=== PATIENT | female | born 1990 | race Caucasian/White ===

== ENCOUNTER 2018-06-16 10:21 | Emergency (ER) | payer OTHER ==
[2018-06-16 10:27] VITALS: BMI 44.1
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
[2018-06-16] MEDS ORDERED: SODIUM CHLORIDE 0.9% 500 ML INFUS.BAG IV ONE (10:51)
[2018-06-16 10:56] LABS: BASO % 0.3 % (0-2.0); EOS % 0.2 % (0-4.5); HEMATOCRIT 41.2 % (32.4-45.2); HEMOGLOBIN 13.5 GM/dL (10.7-15.3); LYMPH % 24.3 % (8-40); MCH 27.4 pg (25.7-33.7); MCHC 32.8 g/dl (32.0-36.0); MEAN CELL VOLUME 83.4 fl (80-96); MEAN PLT VOLUME 8.5 fl (7.5-11.1); MONO % 3.1 % (3.8-10.2); NEUT % 72.1 % (42.8-82.8); PLATELET COUNT 336 K/MM3 (134-434); RBC 4.94 M/mm3 (3.60-5.2); RDW 13.6 % (11.6-15.6); WHITE BLOOD COUNT 11.8 K/mm3 (4.0-10.0)
[2018-06-16] MEDS ORDERED: ONDANSETRON 4 MG/2 ML VIAL IVPUSH ONE (11:18)
[2018-06-16 11:22] LABS: ALBUMIN 4.1 g/dl (3.4-5.0); ALK PHOS 127 U/L (45-117); ANION GAP 10 MMOL/L (8-16); BILIRUBIN,TOTAL 0.4 mg/dL (0.2-1); BLOOD UREA NITROGEN 7 mg/dL (7-18); CALCIUM 9.2 mg/dL (8.5-10.1); CHLORIDE 103 mmol/L (98-107); CO2 24 mmol/L (21-32); CREATININE 0.7 mg/dL (0.55-1.3); GLUCOSE,RANDOM 207 mg/dL (74-106); POTASSIUM 4.1 mmol/L (3.5-5.1); SGOT/AST 21 U/L (15-37); SGPT/ALT 32 U/L (13-61); SODIUM 137 mmol/L (136-145); TOT PROT 8.2 g/dl (6.4-8.2)
[2018-06-16 11:29] LABS: URINE APPEARANCE CLEAR; URINE BILIRUBIN NEGATIVE (<2.0 mg/dL); URINE COLOR YELLOW; URINE GLUCOSE (UA) 1+ (NEGATIVE); URINE KETONE 2+ (NEGATIVE); URINE LEUK ESTERASE NEGATIVE (NEGATIVE); URINE NITRITE NEGATIVE (NEGATIVE); URINE PROTEIN NEGATIVE (NEGATIVE); URINE UROBILINOGEN NEGATIVE mg/dL (0.2-1.0)
[2018-06-16 11:30] LABS: ACETONE SERUM NEGATIVE (NEGATIVE)
[2018-06-16] MEDS ORDERED: ACETAMINOPHEN 1000 MG/100 ML VIAL (NON FORMULARY) IVPB ONE (11:41)
[2018-06-16] MEDS ORDERED: ACETAMINOPHEN INJECTION 100 ML IVPB ONE (11:45)
[2018-06-16] MEDS ORDERED: ONDANSETRON 4 MG/2 ML VIAL ONE (11:45)
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
[2018-06-16 16:01] VITALS: BP 128/80; PULSE 76; TEMP 98.8
== END 2018-06-16 16:09 | disposition home or self-care (01) ==
LOC: JER 10:21
PROC: 3E033GC Introduction of Other Therapeutic Substance into Peripheral Vein, Percutaneous Approach (ICD-10-PCS; principal; 2018-06-16)
PROC: 3E033NZ Introduction of Analgesics, Hypnotics, Sedatives into Peripheral Vein, Percutaneous Approach (ICD-10-PCS; 2018-06-16)
DX: K52.9 Noninfective gastroenteritis and colitis, unspecified (principal); Z11.3 Encounter for screening for infections with a predominantly sexual mode of transmission; Z77.21 Contact with and (suspected) exposure to potentially hazardous body fluids; E11.9 Type 2 diabetes mellitus without complications; Z79.84 Long term (current) use of oral hypoglycemic drugs
CPT/HCPCS: 36415; 74177-TC; 80053; 81003; 82009; 84703; 85025; 87389; 87491; 87591; 99282-25; J0131

== ENCOUNTER 2018-09-16 20:02 | Emergency (ER) | payer OTHER ==
[2018-09-16 20:18] VITALS: BP 143/78; PULSE 77; TEMP 97.2; BMI 28.7
--- NOTE | 2018-09-16 20:39 | PDOC ---
History of Present Illness - General Chief Complaint: Chest Pain Stated Complaint: CHEST PAIN/HYPERTENSION Time Seen by Provider: 09/16/18 20:38 - History of Present Illness Initial Comments: 28yo F with PMH of HTN, DM, and migraines, presenting with chest pain. Patient states she felt chest discomfort earlier this morning which she describes as tension and rate 7-8/10. Later in the afternoon, she felt pain described as a "tugging" extend from the right side of the back of her neck and down her right arm. Patient also reports numbness and tingling in her right arm. Denies diaphoresis, but endorses nausea and one episode of vomiting, as well as two episodes of diarrhea. Took two excedrin around 4pm which did not provide any relief. No personal or family history of SC. No hemoptysis, no recent surgical history, no recent immobilization, no hormone use, no history of DVT or PE. 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 Patient took her blood pressure at home and noted it to be high 155/106. Glucose levels have been generally controlled today but noted sugar to be in the 280s. Reports that some family members have had a stomach bug. No fevers, chills, or abdominal pain. Past History - Past Medical History Allergies/Adverse Reactions: Allergies Allergy/AdvReac Type Severity Reaction Status Date / Time No Known Allergies Allergy Verified 06/16/18 10:27 Home Medications: Ambulatory Orders Cholecalciferol (Vitamin D3) [Vitamin D3] 50,000 unit PO WEEKLY 06/16/18 Ciclopirox Olamine [Ciclopirox] 30 ml TP ASDIR 06/16/18 Glyburide/Metformin HCl [Glyburide-Metformin 5-500 mg] 2 each PO BID 06/16/18 Insulin Glargine,Hum.rec.anlog [Lantus Solostar PEN (NF)] 24 units SQ HS Losartan Potassium [Cozaar -] 25 mg PO BID 06/16/18 Ondansetron [Zofran Odt -] 4 mg SL TID #15 od.tablet 09/16/18 COPD: No Diabetes: Yes (IDDM) - Surgical History Gastric Stapling: No Lung Surgery: No Neurologic Surgery: No - Suicide/Smoking/Psychosocial Hx Smoking History: Never smoked Have you smoked in the past 12 months: No Number of Cigarettes Smoked Daily: 0 Information on smoking cessation initiated: No Hx Alcohol Use: No Drug/Substance Use Hx: No Review of Systems - Review of Systems Comments:: Constitutional: no fever, no chills HEENT: no throat pain, no dysphagia Cardiovascular: +chest pain, no palpitations Respiratory: no cough, no shortness of breath Gastrointestinal: no abdominal pain, +nausea Genitourinary: no dysuria, no frequency Musculoskeletal: no myalgia, no arthralgia Skin: no rash, no itching Neurologic: +headache, no dizziness *Physical Exam - Vital Signs Last Vital Signs Temp Pulse Resp BP Pulse Ox 97.2 F L 77 20 143/78 100 09/16/18 20:16 09/16/18 20:16 09/16/18 20:16 09/16/18 20:16 09/16/18 20:16 - Physical Exam Comments: General: Awake, alert, and fully oriented, in no acute distress Head: No signs of trauma Eyes: EOMI, sclera anicteric ENT: Moist mucus membranes Neck: Normal ROM, supple Lungs: Lungs clear, Normal breath sounds Cardio: Regular rhythm, S1 and S2 present, tender to palpation overlying right side of chest as well as on right side of posterior neck Abdomen: Soft, nontender. No guarding, no rebound, no masses Extremities: Normal range of motion, Distal pulses present SKIN: Warm, Dry, normal turgor Neurologic: Cranial nerves II through XII grossly intact. Normal speech, sensation, strength, coordination, and gait. Moderate Sedation - Procedure Monitoring Vital Signs: Procedure Monitoring Vital Signs Temperature 97.2 F L 09/16/18 20:16 Pulse Rate 77 09/16/18 20:16 Respiratory Rate 20 09/16/18 20:16 Blood Pressure 143/78 09/16/18 20:16 O2 Sat by Pulse Oximetry (%) 100 09/16/18 20:16 ED Treatment Course - LABORATORY CBC & Chemistry Diagram: 09/16/18 21:45 09/16/18 21:45 Medical Decision Making - Medical Decision Making 28yo F with PMH of HTN, DM, and migraines, presenting with chest pain. DDX including but not limited to ACS, DKA, MSK, PNA, PE 1L NS, 1g Ofirmev, 4mg Zofran EKG: rate 79, QTc 435, NSR, no ST d/e 09/16/18 21:21 Mild leukocytosis, WBC=10.2 Patient reports improved pain, now 01/0609/16/18 22:16 CXR without acute pathology Electrolytes WNL, noted hyperglycemic at 208 consistent with diabetes Tpn negative, test negative Acetone negative Do not suspect cardiac pathology or DKA, most likely musculoskeletal origin with viral gastroenteritis Patient discharged 09/16/18 23:01 *DC/Admit/Observation/Transfer Diagnosis at time of Disposition: Chest pain - Discharge Dispostion Disposition: HOME Condition at time of disposition: Stable - Prescriptions Prescriptions: Ondansetron [Zofran Odt -] 4 mg SL TID #15 od.tablet - Referrals Referrals: Cirilo Calix MD [Primary Care Provider] - - Patient Instructions Printed Discharge Instructions: DI for Musculoskeletal Pain Additional Instructions: You came into the ED for chest pain. We performed blood work, an EKG, and Xray which were normal. Follow-up with your primary care doctor at your appointment tomorrow morning to discuss this ED visit and to further evaluate your chest pain. Your workup is not complete until you do so. Antinausea medicine has been sent to your pharmacy. Take as needed, not more than once every 8 hours. You can take [id number] tylenol or motrin for pain. Follow the instructions on the medication bottle. Call for emergency medicine services or go to the emergency room right away if you have symptoms of a heart attack, including: Chest pain, which may feel like a crushing weight A sense of fullness, squeezing, or pressure in the chest Rapid, irregular heartbeat Pain, tingling or numbness in the left shoulder and arm, the neck or jaw, or the right arm Sweating Nausea or vomiting Lightheadedness, weakness, or fainting Shortness of breath If you think you have an emergency, call for medical help right away. - Post Discharge Activity
[2018-09-16] MEDS ORDERED: ACETAMINOPHEN 1000 MG/100 ML VIAL (NON FORMULARY) IVPB ONE (21:20)
[2018-09-16] MEDS ORDERED: SODIUM CHLORIDE 1,000 ML IV STA (21:20)
[2018-09-16] MEDS ORDERED: ONDANSETRON 4 MG/2 ML VIAL IVPUSH ONE (21:20)
[2018-09-16] MEDS ORDERED: ACETAMINOPHEN INJECTION 100 ML IVPB ONE (21:50)
[2018-09-16] MEDS ORDERED: ONDANSETRON 4 MG/2 ML VIAL ONE (21:51)
[2018-09-16 22:04] LABS: BASO % 0.3 % (0-2.0); EOS % 0.6 % (0-4.5); HEMATOCRIT 38.5 % (32.4-45.2); HEMOGLOBIN 13.3 GM/dL (10.7-15.3); LYMPH % 30.2 % (8-40); MCH 28.8 pg (25.7-33.7); MCHC 34.6 g/dl (32.0-36.0); MEAN CELL VOLUME 83.2 fl (80-96); MONO % 3.8 % (3.8-10.2); NEUT % 65.1 % (42.8-82.8); PLATELET COUNT 289 K/MM3 (134-434); RBC 4.63 M/mm3 (3.60-5.2); RDW 14.6 % (11.6-15.6); WHITE BLOOD COUNT 10.6 K/mm3 (4.0-10.0)
--- NOTE | 2018-09-16 22:25 | PDOC ---
Attending Attestation - Resident Resident Name: Renetta Dotson - ED Attending Attestation I have performed the following: I have examined & evaluated the patient, The case was reviewed & discussed with the resident, I agree w/resident's findings & plan, Exceptions are as noted - HPI HPI: 09/16/18 22:24 28 yo female p/w rt shoulder pain since last week but came today because her rt arm felt uncomfortable and she developed anterior chest pain PMH NIDDM,HTN,obesity 09/16/18 22:28 09/16/18 22:32 - Physicial Exam PE: 09/16/18 22:33 obese 28 yo female presents with rt arm,shoulder pain and anterior chest pain head ncat neck supple, no jvd ++trapezius muscle tenderness lungs cta b/l cvs [id number] abd nontender no cva tenderness ext no edema,no clubbing, no cyanosis neuro axox3,ambulatory skin warm and dry 09/16/18 22:41 - Medical Decision Making 09/17/18 01:47 ekg was nsr with no sign of ischemia glu elevated but no dka neg preg normal troponin 09/17/18 01:48 imp atypical chest pain/musculoskeletal strain,diabetes plan pt to follow up with PCP
[2018-09-16 22:42] LABS: ALBUMIN 3.9 g/dl (3.4-5.0); ALK PHOS 140 U/L (45-117); ANION GAP 8 MMOL/L (8-16); BILIRUBIN,TOTAL 0.2 mg/dL (0.2-1); BLOOD UREA NITROGEN 12 mg/dL (7-18); CALCIUM 9.2 mg/dL (8.5-10.1); CHLORIDE 104 mmol/L (98-107); CO2 27 mmol/L (21-32); CREATININE 0.6 mg/dL (0.55-1.3); GLUCOSE,RANDOM 208 mg/dL (74-106); LIPASE 182 U/L (73-393); POTASSIUM 4.7 mmol/L (3.5-5.1); SGOT/AST 10 U/L (15-37); SGPT/ALT 24 U/L (13-61); SODIUM 139 mmol/L (136-145); TOT PROT 7.8 g/dl (6.4-8.2)
[2018-09-16 23:21] LABS: ACETONE SERUM NEGATIVE (NEGATIVE)
--- NOTE | 2018-09-17 11:53 | EKG ---
Test Reason : Blood Pressure : / mmHG Vent. Rate : 079 BPM Atrial Rate : 079 BPM P-R Int : 150 ms QRS Dur : 084 ms QT Int : 380 ms P-R-T Axes : 062 024 060 degrees QTc Int : 435 ms NORMAL SINUS RHYTHM POSSIBLE LEFT ATRIAL ENLARGEMENT BORDERLINE ECG NO PREVIOUS ECGS AVAILABLE Confirmed by MD CORBIN, SIVAN ([id number]) on 09/17/2018 11:53:29 AM Referred By: Confirmed By:SIVAN ALANIZ MD
== END 2018-09-16 23:40 | disposition home or self-care (01) ==
LOC: JER 20:02
PROC: 3E033NZ Introduction of Analgesics, Hypnotics, Sedatives into Peripheral Vein, Percutaneous Approach (ICD-10-PCS; principal; 2018-09-16)
PROC: 3E033GC Introduction of Other Therapeutic Substance into Peripheral Vein, Percutaneous Approach (ICD-10-PCS; 2018-09-16)
DX: R07.9 Chest pain, unspecified (principal); I10 Essential (primary) hypertension; E11.9 Type 2 diabetes mellitus without complications; Z79.4 Long term (current) use of insulin
CPT/HCPCS: 36415; 71046-TC-FY; 80053; 82009; 82550; 83690; 84484; 84703; 85025; 93005; 93010; 99284-25; J0131; J7030

== ENCOUNTER 2019-03-01 11:52 | Emergency (ER) | payer OTHER | END 2019-03-01 14:24 | disposition home or self-care (01) | LOC: JER 11:52 ==

== ENCOUNTER 2019-03-24 12:49 | Emergency (ER) | payer OTHER ==
[2019-03-24 13:10] VITALS: BP 118/61; PULSE 88; TEMP 98.4; BMI 41.6
[2019-03-24] MEDS ORDERED: KETOROLAC TROMETHAMINE 30 MG/1 ML VIAL IM ONE (13:11)
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
[2019-03-24] MEDS ORDERED: KETOROLAC TROMETHAMINE 60 MG/2 ML VIAL ONE (13:20)
[2019-03-24] MEDS ORDERED: KETOROLAC TROMETHAMINE 60 MG/2 ML VIAL IM ONE (13:20)
== END 2019-03-24 13:49 | disposition home or self-care (01) ==
LOC: JERFT 12:49
PROC: 3E0233Z Introduction of Anti-inflammatory into Muscle, Percutaneous Approach (ICD-10-PCS; principal; 2019-03-24)
DX: S13.4XXA Sprain of ligaments of cervical spine, initial encounter (principal); V49.49XA Driver injured in collision with other motor vehicles in traffic accident, initial encounter; Y92.414 Local residential or business street as the place of occurrence of the external cause; Y93.89 Activity, other specified; Y99.8 Other external cause status; I10 Essential (primary) hypertension; E11.9 Type 2 diabetes mellitus without complications; Z79.84 Long term (current) use of oral hypoglycemic drugs
CPT/HCPCS: 99281-25

== ENCOUNTER 2021-10-05 08:39 | Emergency (ER) | payer OTHER ==
[2021-10-05 09:08] VITALS: BP 156/91; PULSE 86; TEMP 98.1; BMI 47.9
[2021-10-05] MEDS ORDERED: ASPIRIN 81 MG CHEWABLE TABLETS PO ONE (09:48)
[2021-10-05] MEDS ORDERED: ASPIRIN 81 MG CHEWABLE TABLETS ONE (10:05)
[2021-10-05 10:32] LABS: BASO % 0.5 % (0-2.0); HEMATOCRIT 36.4 % (32.4-45.2); HEMOGLOBIN 12.1 GM/dL (10.7-15.3); LYMPH % 32.2 % (8-40); MCH 27.2 pg (25.7-33.7); MCHC 33.2 g/dl (32.0-36.0); MEAN CELL VOLUME 82.1 fl (80-96); MEAN PLT VOLUME 8.2 fl (7.5-11.1); NEUT % 61.3 % (42.8-82.8); PLATELET COUNT 336 10^3/uL (134-434); RBC 4.43 M/mm3 (3.60-5.2); RDW 14.5 % (11.6-15.6); WHITE BLOOD COUNT 9.3 K/mm3 (4.0-10.0)
[2021-10-05 10:51] LABS: ACTIVATED PTT 33.9 SECONDS (25.2-36.5); INR 1.13 (0.83-1.09)
[2021-10-05 10:52] LABS: ALBUMIN 3.6 g/dl (3.4-5.0); CALCIUM 9.5 mg/dL (8.5-10.1)
[2021-10-05 10:54] LABS: BLOOD UREA NITROGEN 10.8 mg/dL (7-18)
[2021-10-05 10:55] LABS: CREATININE 0.7 mg/dL (0.55-1.3)
[2021-10-05 10:57] LABS: BILIRUBIN,TOTAL 0.3 mg/dL (0.2-1); TOT PROT 7.4 g/dl (6.4-8.2)
== END 2021-10-05 13:36 | disposition home or self-care (01) ==
LOC: JER 08:39
DX: R07.9 Chest pain, unspecified (principal)
CPT/HCPCS: 36415; 71046-TC-FY; 80053; 83735; 84436; 84439; 84443; 84484; 85025; 85379; 85610; 85730; 93005; 93010; 99285-25

== ENCOUNTER 2022-06-04 00:27 | Emergency (ER) | payer OTHER ==
[2022-06-04 00:40] VITALS: TEMP 98.2; BMI 52.0
[2022-06-04 01:26] LABS: BASO % 1.5 % (0-2.0); HEMATOCRIT 36.3 % (32.4-45.2); HEMOGLOBIN 11.8 GM/dL (10.7-15.3); LYMPH % 26.1 % (8-40); MCH 25.9 pg (25.7-33.7); MCHC 32.5 g/dl (32.0-36.0); MEAN CELL VOLUME 79.8 fl (80-96); MEAN PLT VOLUME 8.2 fl (7.5-11.1); MONO % 5.4 % (3.8-10.2); PLATELET COUNT 361 10^3/uL (134-434); RBC 4.55 M/mm3 (3.60-5.2); RDW 15.5 % (11.6-15.6); WHITE BLOOD COUNT 11.9 K/mm3 (4.0-10.0)
[2022-06-04 01:48] LABS: CALCIUM 8.7 mg/dL (8.5-10.1)
[2022-06-04 01:49] LABS: ALBUMIN 3.6 g/dl (3.4-5.0); BLOOD UREA NITROGEN 13.8 mg/dL (7-18)
[2022-06-04 01:52] LABS: CREATININE 0.8 mg/dL (0.55-1.3)
[2022-06-04 01:54] LABS: BILIRUBIN,TOTAL 0.2 mg/dL (0.2-1); TOT PROT 7.3 g/dl (6.4-8.2)
[2022-06-04] MEDS ORDERED: ACETAMINOPHEN 1000 MG/100 ML BAG IVPB ONE (02:44)
[2022-06-04] MEDS ORDERED: diazePAM CARPU-JECT 10 MG/2 ML DISP.SYRIN IVPUSH ONE (03:08)
[2022-06-04] MEDS ORDERED: ACETAMINOPHEN INJECTION 100 ML IVPB ONE (03:22)
[2022-06-04] MEDS ORDERED: diazePAM CARPU-JECT 10 MG/2 ML DISP.SYRIN ONE (03:22)
[2022-06-04 03:37] VITALS: BP 136/73; PULSE 65; RESP 15
== END 2022-06-04 05:39 | disposition home or self-care (01) ==
LOC: JER 00:27
PROC: 3E033NZ Introduction of Analgesics, Hypnotics, Sedatives into Peripheral Vein, Percutaneous Approach (ICD-10-PCS; principal; 2022-06-04)
PROC: 3E033GC Introduction of Other Therapeutic Substance into Peripheral Vein, Percutaneous Approach (ICD-10-PCS; 2022-06-04)
DX: I10 Essential (primary) hypertension (principal)
CPT/HCPCS: 36415; 71046-TC-FY; 80053; 84484; 85025; 93005; 93010; 99284-25; C9803-CS; U0003; U0005

== ENCOUNTER 2023-07-20 03:54 | Emergency (ER) | payer OTHER ==
[2023-07-20 04:06] VITALS: BMI 50.2
[2023-07-20] MEDS ORDERED: ONDANSETRON 4 MG/2 ML VIAL IVPUSH ONE (04:31)
[2023-07-20] MEDS ORDERED: MAG HYDROX/AL HYDROX/SIMETH 30 ML UNIT-DOSE CUP PO ONE (04:31)
[2023-07-20] MEDS ORDERED: FAMOTIDINE 20 MG/50 ML IVPB 20 MG/50 ML MG IVPB ONE ×2 (04:31→04:50)
[2023-07-20] MEDS ORDERED: ONDANSETRON 4 MG/2 ML VIAL ONE (04:50)
[2023-07-20] MEDS ORDERED: MAG HYDROX/AL HYDROX/SIMETH 30 ML UNIT-DOSE CUP ONE (04:50)
[2023-07-20 05:42] LABS: BASO % 1.1 % (0-2.0); EOS % 2.2 % (0-4.5); HEMATOCRIT 35.1 % (32.4-45.2); HEMOGLOBIN 11.4 GM/dL (10.7-15.3); MCH 26.2 pg (25.7-33.7); MCHC 32.5 g/dl (32.0-36.0); MEAN CELL VOLUME 80.6 fl (80-96); MEAN PLT VOLUME 8.6 fl (7.5-11.1); MONO % 6.3 % (3.8-10.2); NEUT % 61.4 % (42.8-82.8); PLATELET COUNT 319 10^3/uL (134-434); RBC 4.36 M/mm3 (3.60-5.2); RDW 14.3 % (11.6-15.6); WHITE BLOOD COUNT 10.8 K/mm3 (4.0-10.0)
[2023-07-20 05:57] VITALS: RESP 18
[2023-07-20 06:02] LABS: POTASSIUM 4.1 mmol/L (3.5-5.1)
[2023-07-20 06:06] LABS: CALCIUM 8.8 mg/dL (8.5-10.1)
[2023-07-20 06:07] LABS: ALBUMIN 3.3 g/dl (3.4-5.0); BLOOD UREA NITROGEN 12.3 mg/dL (7-18)
[2023-07-20 06:09] LABS: CREATININE 0.8 mg/dL (0.55-1.3)
[2023-07-20 06:11] LABS: BILIRUBIN,TOTAL 0.1 mg/dL (0.2-1); TOT PROT 7.2 g/dl (6.4-8.2)
[2023-07-20 08:33] LABS: INR 1.11 (0.83-1.09); PROTHROMBIN TIME (PATIENT) 12.9 SEC (9.7-13.0)
[2023-07-20 08:35] LABS: ACTIVATED PTT 33.9 SECONDS (25.2-36.5)
[2023-07-20 09:54] VITALS: BP 113/64; PULSE 81; TEMP 98
[2023-07-20] MEDS ORDERED: ACETAMINOPHEN 500 MG TABLET (FP) ONE (10:39)
== END 2023-07-20 12:53 | disposition home or self-care (01) ==
LOC: JER 03:54
PROC: 3E033GC Introduction of Other Therapeutic Substance into Peripheral Vein, Percutaneous Approach (ICD-10-PCS; principal; 2023-07-20)
PROC: 3E033GC Introduction of Other Therapeutic Substance into Peripheral Vein, Percutaneous Approach (ICD-10-PCS; 2023-07-20)
DX: R10.13 Epigastric pain (principal); R06.02 Shortness of breath; Z20.822 Contact with and (suspected) exposure to COVID-19
CPT/HCPCS: 0241U-QW; 36415; 71045-TC-FY; 71275-TC; 76705-TC; 80053; 83690; 84484; 84703; 85025; 85610; 85730; 93005; 93010; 93308; 99285-25; Q9967

== ENCOUNTER 2025-01-27 20:37 | Emergency (ER) | payer OTHER ==
[2025-01-27 20:47] VITALS: BP 138/74; PULSE 83; RESP 18; TEMP 98.1; BMI 50.2
[2025-01-27] MEDS ORDERED: diphenhydrAMINE HCL 25 MG CAPSULE (FP) PO ONE (21:19)
[2025-01-27] MEDS: diphenhydrAMINE HCL 25 MG CAPSULE (FP) PO ONE (21:45)
[2025-01-27 21:50] LABS: ABSOLUTE IMMATURE GRANULOCYTES 0.04 x10^3/uL (0.0-0.031); BASOPHILS # 0.07 x10^3/uL (0.01-0.08); EOSINOPHIL % 1.0 % (0.7-5.8); EOSINOPHILS # 0.14 x10^3/uL (0.04-0.36); MCHC 31.7 g/dl (32.2-35.5); MEAN CELL VOLUME 85.8 fl (79.4-94.8); MEAN PLT VOLUME 10.4 fl (9.4-12.3); MONOCYTE # 0.73 x10^3/uL (0.24-0.86); MONOCYTE % 5.1 % (4.7-12.5); RDW 13.5 % (12.1-16.8)
[2025-01-27 22:16] LABS: CO2 21.0 mmol/L (21-32); GLUCOSE,RANDOM 97.0 mg/dL (74-106)
[2025-01-27 22:19] LABS: CREATININE 0.7 mg/dL (0.55-1.3); SGOT/AST 26.0 U/L (15-37); SGPT/ALT 30.0 U/L (13-61)
[2025-01-27 22:21] LABS: TOT PROT 7.4 g/dl (6.4-8.2)
[2025-01-27 22:22] LABS: ALK PHOS 243.0 U/L (45-117)
[2025-01-28 00:21] LABS: HCV DIAGNOSTIC IN-HOUSE W/RFLX NON-REACTIVE (NONREACTIVE)
[2025-01-28 00:25] LABS: HIV INTERPRETATION NEGATIVE (NEGATIVE)
== END 2025-01-27 22:51 | disposition home or self-care (01) ==
LOC: JER 20:37
DX: R07.89 Other chest pain (principal); G89.29 Other chronic pain
CPT/HCPCS: 36415; 71045-TC-FY; 80053; 84484; 85025; 86803; 87389; 93005; 93010; 99285-25